=== PATIENT | female | born 1970 | race Caucasian/White ===

== ENCOUNTER 2017-07-07 20:58 | Emergency (ER) | payer MEDICAID ==
[2017-07-07 22:25] VITALS: BP 149/92
== END 2017-07-07 22:25 | disposition home or self-care (01) ==
LOC: ED 20:58
DX: N39.0 Urinary tract infection, site not specified (principal); Z87.42 Personal history of other diseases of the female genital tract

== ENCOUNTER 2017-10-01 13:22 | Emergency (ER) | payer MEDICAID ==
[~2017-10-01] VITALS: Ht 154.9 cm; Wt 73.5 kg
[2017-10-01 13:56] VITALS: Ht 154.9 cm; Wt 73.5 kg
[2017-10-01 16:33] LABS: BASOPHIL % 0.4 % (0-2); PLATELET COUNT 245 x10^3mcL (130-400)
[2017-10-01 17:26] LABS: CALCIUM 9.3 mg/dL (8.5-10.1); CARBON DIOXIDE 24.7 mmol/L (21-32); CHLORIDE SERUM 105 mmol/L (98-107); CREATININE SERUM 0.5 mg/dL (0.6-1.0); GFR1 > 60 mL/min; GLUCOSE SERUM 91 mg/dL (74-106); SODIUM SERUM 142 mmol/L (136-145)
[2017-10-01 17:30] LABS: ALBUMIN 4.1 g/dL (3.4-5.0); ALKALINE PHOSPHATASE 49 U/L (46-116); ALT/SGPT 28 U/L (14-59); AST/SGOT 25 U/L (15-37); BILIRUBIN TOTAL 0.58 mg/dL (0.20-1.00); TOTAL PROTEIN, SERUM 7.9 g/dL (6.4-8.2)
[2017-10-01 18:08] VITALS: BP 133/87
== END 2017-10-01 18:08 | disposition home or self-care (01) ==
LOC: ED 13:22
PROVIDERS: Specialist
DX: M54.5 Low back pain (principal); Z90.49 Acquired absence of other specified parts of digestive tract

== ENCOUNTER 2017-10-16 09:13 | Emergency (ER) | payer MEDICAID ==
[~2017-10-16] VITALS: Ht 154.9 cm; Wt 73.1 kg
[2017-10-16 09:40] VITALS: Ht 154.9 cm; Wt 73.1 kg
[2017-10-16 12:05] VITALS: BP 189/91
[2017-10-16 12:08] LABS: BASOPHIL % 0.3 % (0-2); PLATELET COUNT 222 x10^3mcL (130-400); RED CELL DISTRIBUTION WIDTH 12.5 % (11.5-14.5)
[2017-10-16 12:52] LABS: CALCIUM 9.1 mg/dL (8.5-10.1); CARBON DIOXIDE 26.2 mmol/L (21-32); CHLORIDE SERUM 103 mmol/L (98-107); CREATININE SERUM 0.5 mg/dL (0.6-1.0); GFR1 > 60 mL/min; GLUCOSE SERUM 116 mg/dL (74-106); POTASSIUM SERUM 4.2 mmol/L (3.5-5.1); SODIUM SERUM 140 mmol/L (136-145)
[2017-10-16 13:04] LABS: ALBUMIN 3.7 g/dL (3.4-5.0); ALKALINE PHOSPHATASE 49 U/L (46-116); ALT/SGPT 41 U/L (14-59); AST/SGOT 21 U/L (15-37); BILIRUBIN TOTAL 0.4 mg/dL (0.20-1.00); FREE T4 2.64 ng/dL (0.76-1.46); TOTAL PROTEIN, SERUM 7.3 g/dL (6.4-8.2)
== END 2017-10-16 13:55 | disposition home or self-care (01) ==
LOC: ED 09:13
PROVIDERS: Emergency Medicine
DX: E05.90 Thyrotoxicosis, unspecified without thyrotoxic crisis or storm (principal); H93.8X2 Other specified disorders of left ear
CPT/HCPCS: 36415; 84439; J8597

== ENCOUNTER 2018-04-27 20:23 | Emergency (ER) | payer MEDICAID ==
[~2018-04-27] VITALS: Ht 152.4 cm; Wt 76.7 kg
[2018-04-27 20:43] VITALS: Ht 152.4 cm; Wt 76.7 kg
[2018-04-27 22:57] VITALS: BP 158/91
== END 2018-04-27 22:57 | disposition home or self-care (01) ==
LOC: ED 20:23
DX: L60.0 Ingrowing nail (principal); Z90.49 Acquired absence of other specified parts of digestive tract
CPT/HCPCS: J2001

== ENCOUNTER 2018-08-26 20:12 | Emergency (ER) | payer OTHER ==
[~2018-08-26] VITALS: Ht 152.4 cm; Wt 77.1 kg
[2018-08-26 20:39] VITALS: Ht 152.4 cm; Wt 77.1 kg
[2018-08-26 22:55] VITALS: BP 148/93
== END 2018-08-26 22:55 | disposition home or self-care (01) ==
LOC: ED 20:12
DX: S92.902A Unspecified fracture of left foot, initial encounter for closed fracture (principal); Z90.49 Acquired absence of other specified parts of digestive tract; Z98.890 Other specified postprocedural states; W10.9XXA Fall (on) (from) unspecified stairs and steps, initial encounter; Y93.89 Activity, other specified; Y92.89 Other specified places as the place of occurrence of the external cause; Y99.8 Other external cause status